=== PATIENT | female | born 1980 | race Caucasian/White ===

== ENCOUNTER 2024-04-07 11:01 | Outpatient (AMB) | payer OTHER, SELFPAY ==
[2024-04-07 12:53] VITALS: BP 128/74; PULSE 81; O2SAT 98; BMI 39.1
--- NOTE | 2024-04-07 12:53 | MHC.OFFWIV ---
Intake Vital Signs 04/07/24 12:53 Height 5 ft 3 in Weight 221 lb BMI 39.1 BP 128/74 Blood Pressure Location Lt brachial Position Sitting Pulse 81 Pulse Source Pulse Oximeter Pulse Oximetry (%) 98 Oxygen Delivery Method Room Air Intake Visit Reasons: [employer] Foot injury Intake Note: Patient is here with right foot injury on Tuesday, she has been in pain since, she feels she has been doing too much with no known injury. Patient Tobacco Use Status: Never used Tobacco Allergies No Known Drug Allergies Allergy (Unknown, Unverified 04/07/24 12:55) NONE Do you need a note to return to daycare/school/sports/work: No HPI [employer] WORKER RT Foot injury HPI Details Patient is a 44-year-old female comes to the walk-in clinic complaining of pain and swelling to the outside of her right ankle for the last week. She had spent a day mowing and doing household work prior to symptom onset the next day. No acute trauma was noted immediately. No weakness numbness or tingling reported. She is able to bear weight with just a slight limp with ambulation. No prior injury to the area reported. [facility] Social History Patient Tobacco Use Status: Never used Tobacco Review of Systems Const All systems reviewed & are unremarkable except as noted in HPI and below Physical Exam Vital Signs: Last Vital Signs Pulse 81 04/07/24 12:53 BP 128/74 04/07/24 12:53 Pulse Ox 98 04/07/24 12:53 Oxygen Delivery Method Room Air 04/07/24 12:53 BMI result Body Mass Index 39.1 Const General: cooperative, healthy appearing, comfortable, no acute distress, alert, awake, Physically active and well groomed; No anxious, diaphoretic, ill appearing, intoxicated appearing, poor hygiene or tired appearing Nutritional Appearance: average body habitus Resp Effort & Inspection: normal respiratory effort Cardio Rate: regular rate Skin Other: Good color, warm and dry Extrem Other: Edema and tenderness to the right lateral malleolus and malleolar area. No ecchymosis, lacerations or abrasions. No pain to the underside of the foot. Full range of motion and strength to the ankle and foot, and to the right knee. Skin good color warm and dry. Neurovascularly intact distally with good cap refill. Psych Appearance: grossly normal Mental Status: mental status grossly normal Speech and movement: Normal speech and movement present Affect: normal affect Attitude: cooperative Thought process: Normal thought process present Insight: Good insight present (Psych) Judgement: Good judgement present (Psych) Results Reviewed Results Reviewed: X-rays of the right ankle show no acute injury per my wet read. Assessment & Plan Assessment & Plan (1) Ankle sprain: Code(s): S93.409A - Sprain of unspecified ligament of unspecified ankle, initial encounter Qualifiers: Encounter type: initial encounter Involved ligament of ankle: anterior talofibular ligament Laterality: right Qualified Code(s): S93.491A - Sprain of other ligament of right ankle, initial encounter Plan: Patient with acute lateral malleolar sprain, likely the anterior talofibular ligament. I think it is mild in severity, as she was not even aware of the injury until it started to swell up the next day. It has persisted despite occasional icing, mild elevation and low anti-inflammatory treatment however, and is still obviously edematous today. On x-ray, there appears to be no acute trauma apparent except for mild swelling. We put her in an Kade wrap and an Aircast, and she was quite happy with the way it felt to ambulate, so crutches were not needed. She will continue with [id number] anti-inflammatory use, as she does not want to trial anything else prescription bynum. She can monitor symptoms and expect to have proved healing over the next week to 2 weeks. If symptoms persist or worsen, she knows to follow up with PCP, urgent care, orthopedist or back here at the walk-in as needed. Orders: Orders XR ankle RT min 3V Today M25.571 - Pain in right ankle and joints of right foot Coding Level of Care Code New Pt Level 4 (13222) Diagnoses Sprain of anterior talofibular ligament of right ankle, initial encounter S93.491A Encounter type: initial encounter Involved ligament of ankle: anterior talofibular ligament Laterality: right
== END 2024-04-07 14:23 | disposition home or self-care (01) ==
PROVIDERS: Visit Provider Physician Assistant Medical
DX: S93.491A Sprain of other ligament of right ankle, initial encounter (principal)
CPT/HCPCS: 99051; 99204

== ENCOUNTER 2024-04-07 13:28 | Outpatient (REF) | payer OTHER, SELFPAY ==
--- NOTE | ~2024-04-07 | XR_ITS ---
EXAMINATION:XR ankle RT min 3V VIEWS ACQUIRED: Frontal lateral and oblique left ankle and 4 views left foot CLINICAL INFORMATION: Reason for Exam M25.571 - Pain in right ankle and joints of right foot COMPARISON: None available at the time of this dictation. FINDINGS: There is no evidence of acute fracture or dislocation. Intertarsal, tarsometatarsal, metatarsophalangeal and interphalangeal joints are intact. Surrounding soft tissues is normal. , Ankle mortise is preserved. Talar dome is intact. Distal tibia and fibula are unremarkable. Subtalar joint is normal. XR/XR ankle RT min 3V IMPRESSION: 1. No radiographic evidence of acute fracture. 2. Bone alignments are satisfactory.
== END 2024-04-07 13:29 | disposition home or self-care (01) ==
LOC: HO.HMGCX 13:28
PROVIDERS: Visit Provider Physician Assistant Medical
DX: M25.571 Pain in right ankle and joints of right foot (principal)
CPT/HCPCS: 73610